=== PATIENT | male | born 1940 | race Caucasian/White ===

== ENCOUNTER → 2016-10-13 | Outpatient (REF) | payer MEDICARE, OTHER ==
[~2016-10-13] MED LIST: [UNRECOGNIZED DRUG - REMARK]
[2016-10-13 11:44] LABS: CALCULATED IONIZED CALCIUM 4.2 mg/dL (3.8-4.6); TOTAL PROTEIN 6.6 g/dL (6.4-8.5)
== END ==
LOC: LAB 10:37
PROVIDERS: ATTEND Family Medicine
DX: I25.10 Atherosclerotic heart disease of native coronary artery without angina pectoris (principal); I10 Essential (primary) hypertension
CPT/HCPCS: 80053; 80061